=== PATIENT | female | born 1975 | race Two or more races ===

== ENCOUNTER 2017-10-20 07:56 | Inpatient (IN) | payer OTHER ==
[~2017-10-20] VITALS: Ht 162.6 cm; Wt 4.1 kg
[~2017-10-20 07:56] MED LIST: SYNTHROID112 MCG PO
[2017-10-20] MEDS ORDERED: SYNTHROID125 MCG PO (15:17)
[2017-10-20] MEDS ORDERED: ATABEX DHA 200200 MG PO (15:18)
[2017-10-22] MEDS ORDERED: SURFAK240 M1 PO (09:14)
[2017-10-22] MEDS ORDERED: IBUPROFEN800 MG PO (09:14)
== END 2017-10-22 11:57 | disposition home or self-care (01) | DRG 766 ==
LOC: LDR 07:56 → SURG-SUITE 07:56
PROVIDERS: Specialist
PROC: 4A1HXCZ Monitoring of Products of Conception, Cardiac Rate, External Approach (ICD-10-PCS; 2017-10-20)
PROC: 4A033R1 Measurement of Arterial Saturation, Peripheral, Percutaneous Approach (ICD-10-PCS; 2017-10-20)
PROC: 10D00Z1 Extraction of Products of Conception, Low, Open Approach (ICD-10-PCS; principal; 2017-10-20 09:00)
DX: O34.211 Maternal care for low transverse scar from previous cesarean delivery (principal); Z3A.37 37 weeks gestation of pregnancy; Z37.0 Single live birth